=== PATIENT | male | born 1960 | race Caucasian/White ===

== ENCOUNTER 2019-06-27 11:25 | Emergency (ER) | payer MEDICAID ==
[~2019-06-27] VITALS: Ht 180.3 cm; Wt 90.7 kg
[2019-06-27 11:30] VITALS: BP 165/64
--- NOTE | 2019-06-27 11:58 | NUR ---
PT AMBULATED TO BED 09 EVEN STEADY GAIT.
--- NOTE | 2019-06-27 12:00 | NUR ---
58/M C/O CACTUS NEEDLES IN BILATERAL LOWER EXTREMITY X 1 WEEK. STATES FELL ON CACTUS 1 WEEK AGO BUT BRACED SOME OF FALL WITH HANDS. STATES ONLY ITCHINESS AT AFFECTED SITES. DENIES PAIN. STATES PAIN ONLY WITH CACTUS NEEDLE GETTING CAUGHT ON JEANS. LESIONS ON BLE. ONE CACTUS NEEDLE NOTED ON RLE. Addendum: 06/27/19 at 1204 by BERNIE DENIES NUMBNESS/TINGLING. EQUAL 2+ PEDAL PULSES BILATERALLY.
--- NOTE | 2019-06-27 12:04 | NUR ---
DR. ARMSTRONG EVALUATING PT AT BEDSIDE.
--- NOTE | 2019-06-27 12:08 | NUR ---
HX- ASTHMA, ABD HERNIA SURGERY
--- NOTE | 2019-06-27 12:29 | NUR ---
EMT AT BEDSIDE FOR WOUND CARE
--- NOTE | 2019-06-27 13:45 | NUR ---
PT STATES HE WANTS WOUNDS ON LEGS WRAPPED BEFORE DISCHARGE.
[2019-06-27] MEDS ORDERED: BACITRACIN OINT 500 UNITS/GM PKT TP ONE ×2 (13:55→14:00)
--- NOTE | 2019-06-27 14:10 | NUR ---
PT REQUEST FOOD UPON DISCHARGE. DIETARY CALLED AT THIS TIME.
[2019-06-27 14:12] VITALS: BP 160/62
--- NOTE | 2019-06-27 14:12 | NUR ---
PT REQUESTED BUS PASS, PT WAITING IN ROOM AT THIS TIME.
--- NOTE | 2019-06-27 14:13 | NUR ---
Patient discharged with v/s stable. Written and verbal after care instructions given and explained. Patient alert, oriented and verbalized understanding of instructions. Ambulatory with steady gait. All questions addressed prior to discharge. ID band removed. Patient advised to follow up with PMD. Rx of CLARITIN AND CEPHALEXIN 500MG given. Patient educated on indication of medication including possible reaction and side effects. Opportunity to ask questions provided and answered. PT RECEIVED BUS PASS.
== END 2019-06-27 14:13 | disposition home or self-care (01) ==
LOC: MED 11:25
DX: S81.832A Puncture wound without foreign body, left lower leg, initial encounter (principal); S81.831A Puncture wound without foreign body, right lower leg, initial encounter; L03.115 Cellulitis of right lower limb; I10 Essential (primary) hypertension; J45.909 Unspecified asthma, uncomplicated; F17.200 Nicotine dependence, unspecified, uncomplicated; W60.XXXA Contact with nonvenomous plant thorns and spines and sharp leaves, initial encounter; Y92.89 Other specified places as the place of occurrence of the external cause; Y93.89 Activity, other specified; Y99.8 Other external cause status
CPT/HCPCS: 90471; 90715; 99283